=== PATIENT | male | born 1995 | race Caucasian/White ===

== ENCOUNTER 2016-09-15 21:34 | Inpatient (IN) | payer OTHER ==
[~2016-09-15] VITALS: Ht 162.6 cm; Wt 56.0 kg
[~2016-09-15 21:34] MED LIST: BENADRYL25 MG PO; DULCOLAX5 MG PO; ENDOCET 5-3251 EACH PO; HYDROCODON-ACE1 EAC7 PO; MOTRIN600 MG PO; PERCOCET 5/31 TABLET PO; XARELTO10 MG PO; ZOFRAN ODT4 MG PO
[2016-09-16 01:40] LABS: MCH 30.4 PG (29.0-34.0); MCHC 33.5 G/DL (30.0-36.0); MCV 90.7 FL (86-99); PLATELET COUNT 352 K/uL (156-360); RBC DIS.WIDTH-CV 12.2 % (11.8-14.6); RBC DIS.WIDTH-SD 40.7 % (39-53); RED BLOOD COUNT 5.07 M/uL (4.00-5.50); WHITE BLOOD COUNT 8.8 K/uL (4.1-10.2)
[2016-09-16 01:49] LABS: CHLORIDE 105 mEq/L (99-109); POTASSIUM 3.9 mEq/L (3.7-5.4); SODIUM 141 mEq/L (136-147)
[2016-09-16 01:51] LABS: GLUCOSE 94 mg/dL (70-99)
[2016-09-16 01:53] LABS: ANION GAP 11 MEQ/L (2-14)
[2016-09-16 01:54] LABS: SERUM ETHYL ALCOHOL < 10 mg/dL
[2016-09-16 01:55] LABS: GFR ESTIMATE (CALCULATED) > 59 mL/min/
[2016-09-16 01:56] LABS: UREA NITROGEN (BUN) 8 mg/dL (9-23)
[2016-09-16 01:57] LABS: AMPHETAMINE NEGATIVE (500 ng/mL); BARBITURATES NEGATIVE (200 ng/mL); BENZODIAZEPINES NEGATIVE (150 ng/mL); COCAINE NEGATIVE (150 ng/mL); INTERNAL CONTROLS VALID? YES; METHADONE NEGATIVE (200 ng/mL); METHAMPHETAMINE NEGATIVE (500 ng/mL); OPIATES (MORPHINE) NEGATIVE (100 ng/mL); OXYCODONE NEGATIVE (100 ng/mL); PHENCYCLIDINE NEGATIVE (25 ng/mL); PROPOXYPHENE NEGATIVE (300 ng/mL); THC CANNABINOIDS NEGATIVE (50 ng/mL); TRICYCLIC ANTIDEPRESSANTS NEGATIVE (300 ng/mL)
[2016-09-16 03:25] VITALS: BP 107/66
[2016-09-16 07:24] VITALS: BP 106/56
[2016-09-16 15:53] VITALS: BP 119/69
[2016-09-17 07:38] VITALS: BP 107/53
[2016-09-17 15:50] VITALS: BP 132/59
[2016-09-18 07:39] VITALS: BP 116/55
[2016-09-18 14:49] VITALS: BP 118/59
[2016-09-19] MEDS ORDERED: SERTRALINE HCL100 MG PO (09:12)
[2016-09-19 09:54] VITALS: BP 119/64
== END 2016-09-19 10:57 | disposition home or self-care (01) | DRG 885 ==
LOC: EME 21:34 → 1WEST 09-16 01:10 → EDOF 09-16 01:10 → 1WEST 09-16 01:10
PROVIDERS: Emergency Medicine
DX: F33.9 Major depressive disorder, recurrent, unspecified (principal); F43.29 Adjustment disorder with other symptoms; S50.819A Abrasion of unspecified forearm, initial encounter; S30.811A Abrasion of abdominal wall, initial encounter; X78.9XXA Intentional self-harm by unspecified sharp object, initial encounter; T21.01XA Burn of unspecified degree of chest wall, initial encounter; X76.XXXA Intentional self-harm by smoke, fire and flames, initial encounter; Z56.0 Unemployment, unspecified; F17.200 Nicotine dependence, unspecified, uncomplicated; F10.10 Alcohol abuse, uncomplicated; F12.90 Cannabis use, unspecified, uncomplicated
CPT/HCPCS: 80048; 85027; 90837; 97150 GO; 97166 GO; 99281; 99285; G0480

== ENCOUNTER 2016-11-29 11:10 | Emergency (ER) | payer OTHER ==
[~2016-11-29] VITALS: Ht 162.6 cm; Wt 55.3 kg
[~2016-11-29 11:10] MED LIST changes: +SERTRALINE HCL100 MG PO
[2016-11-29 12:03] LABS: HEMATOCRIT 45.9 % (38.0-50.0); MCH 30.3 PG (29.0-34.0); MCHC 32.9 G/DL (30.0-36.0); PLATELET COUNT 304 K/uL (156-360); RBC DIS.WIDTH-CV 12.4 % (11.8-14.6); RBC DIS.WIDTH-SD 41.6 % (39-53); RED BLOOD COUNT 4.99 M/uL (4.00-5.50); WHITE BLOOD COUNT 5.8 K/uL (4.1-10.2)
[2016-11-29 12:16] LABS: CHLORIDE 104 mEq/L (99-109); POTASSIUM 3.8 mEq/L (3.7-5.4); SODIUM 142 mEq/L (136-147)
[2016-11-29 12:18] LABS: GLUCOSE 70 mg/dL (70-99)
[2016-11-29 12:19] LABS: ANION GAP 12 MEQ/L (2-14)
[2016-11-29 12:22] LABS: GFR ESTIMATE (CALCULATED) > 59 mL/min/; UREA NITROGEN (BUN) 9 mg/dL (9-23)
[2016-11-29 13:18] LABS: ADD MIUA? YES; BILIRUBIN NEGATIVE; BLOOD NEGATIVE; COLOR YELLOW ((YELLOW)); GLUCOSE (STRIP) NEGATIVE; KETONES NEGATIVE; LEUKOCYTES SMALL; NITRITE NEGATIVE; PROTEIN (STRIP) NEGATIVE; SPECIFIC GRAVITY 1.015 (1.000-1.030); UROBILINOGEN 0.2 MG/DL (0.2-1.0)
[2016-11-29 13:38] LABS: BACTERIA RARE /HPF; EPITHELIAL CELLS RARE /HPF; MUCUS 1+ /LPF; RED BLOOD CELLS 0-5 /HPF (0-5); UCUL ADDED? NO; URIC ACID CRYSTALS 2+ /HPF
[2016-11-29 14:17] VITALS: BP 120/77
[2016-11-30 14:18] LABS: CHLAMYDIA TRACHOMATIS NEGATIVE; NEISSERIA GONORRHOEAE NEGATIVE
== END 2016-11-29 14:17 | disposition home or self-care (01) ==
LOC: EME 11:10
PROVIDERS: Nurse Practitioner Family
DX: N52.9 Male erectile dysfunction, unspecified (principal); N32.89 Other specified disorders of bladder; F17.200 Nicotine dependence, unspecified, uncomplicated
CPT/HCPCS: 80048; 81003; 85027; 87491; 87591; 99281; 99284

== ENCOUNTER 2017-06-16 15:48 | Emergency (ER) | payer OTHER ==
[~2017-06-16] VITALS: Ht 162.6 cm; Wt 56.4 kg
[2017-06-16] MEDS ORDERED: NORCO 7.5/321 TABLET PO (18:38)
[2017-06-16] MEDS ORDERED: MOTRIN800 MG PO (18:38)
[2017-06-16] MEDS ORDERED: ANTIVERT25 MG PO (18:38)
[2017-06-16 18:56] VITALS: BP 1120/75
== END 2017-06-16 18:58 | disposition home or self-care (01) ==
LOC: RME 15:48 → EME 15:48 → RME 18:58
DX: S06.0X0A Concussion without loss of consciousness, initial encounter (principal); S70.02XA Contusion of left hip, initial encounter; V49.40XA Driver injured in collision with unspecified motor vehicles in traffic accident, initial encounter; Y92.410 Unspecified street and highway as the place of occurrence of the external cause; F17.200 Nicotine dependence, unspecified, uncomplicated; Z59.0 Homelessness
CPT/HCPCS: 70450; 73502; 99281; 99284